=== PATIENT | male | born 1965 | race Caucasian/White ===

== ENCOUNTER 2020-02-07 18:35 | Emergency (ER) | payer BC, OTHER ==
[2020-02-07] MEDS ORDERED: NAPROXEN 250 MG TAB ONE (21:00)
[2020-02-07] MEDS ORDERED: LIDOCAINE 4% CREAM 5GM (LMX4) ONE (21:00)
[2020-02-07] MEDS ORDERED: NAPROXEN 250 MG TAB As Ordered ONE (21:09)
[2020-02-07] MEDS ORDERED: LIDOCAINE 4% CREAM 5GM (LMX4) As Ordered ONE (21:09)
--- NOTE | 2020-03-31 11:52 | REP ---
RIGHT ELBOW SERIES: FOUR VIEWS. DATE: 02/07/2020 HISTORY: Lifting injury. NOTE: This report was delayed due to a malware attack on this facility. FINDINGS: Four views of the right elbow demonstrate normal alignment of the glenohumeral and acromioclavicular joint. There is no evidence of joint effusion. No erosive changes seen. No fracture or subluxation is seen. IMPRESSION: No acute abnormality. MTDD
--- NOTE | 2020-03-31 11:53 | REP ---
EXAM: RIGHT SHOULDER: THREE VIEWS. HISTORY: Upper arm and shoulder pain. Lifting and/or carrying injury. NOTE: This report was delayed due to a malware attack on this facility. FINDINGS: Three views of the right shoulder demonstrate normal alignment of the glenohumeral and acromioclavicular joints. Articular soft tissues are unremarkable. No fracture or subluxation is seen. IMPRESSION: No fracture or subluxation noted. [facility]
== END 2020-02-07 21:15 | disposition home or self-care (01) ==
LOC: M ED 18:35
DX: S46.211A Strain of muscle, fascia and tendon of other parts of biceps, right arm, initial encounter (principal); X50.0XXA Overexertion from strenuous movement or load, initial encounter; W18.49XA Other slipping, tripping and stumbling without falling, initial encounter; Y92.9 Unspecified place or not applicable; Y93.9 Activity, unspecified; Y99.9 Unspecified external cause status

== ENCOUNTER 2020-02-15 14:30 | Day surgery (SDC) | payer OTHER ==
[2020-02-15] MEDS ORDERED: ceFAZolin 2 GM/D5W 50 ML IV BAG (J0690 PER 500MG) As Ordered ONE (14:40)
[2020-02-15] MEDS ORDERED: ROCURONIUM BROMIDE 50 MG/5 ML VIAL As Ordered ONE (15:21)
[2020-02-15] MEDS ORDERED: LIDOCAINE 2% 100MG/5ML SDV (FOR ANES.) As Ordered ONE (15:21)
[2020-02-15] MEDS ORDERED: propofoL 200 MG/20 ML VIAL As Ordered ONE ×2 (15:21→18:06)
[2020-02-15] MEDS ORDERED: fentaNYL 250 MCG/5 ML INJECTION (J3010) As Ordered ONE (16:02)
[2020-02-15] MEDS ORDERED: MIDAZOLAM INJ 2MG/2ML VIAL (J2250 PER 1MG) As Ordered ONE (16:02)
[2020-02-15] MEDS ORDERED: BUPIVACAINE HCL 0.5% 10ML VIAL As Ordered ONE (16:40)
[2020-02-15] MEDS ORDERED: dexameTHASONE 4 MG/ML 1ML VIAL (J1100 PER 1MG) As Ordered ONE (17:10)
[2020-02-15] MEDS ORDERED: ACETAMINOPHEN 1000MG 100ML IV BTL (OFIRMEV) (J0131 PER 10MG) As Ordered ONE (17:10)
[2020-02-15] MEDS ORDERED: ONDANSETRON 4MG/2ML VIAL As Ordered ONE ×2 (17:10→18:43)
[2020-02-15] MEDS ORDERED: KETOROLAC 60MG 2ML VIAL As Ordered ONE (17:10)
[2020-02-15] MEDS ORDERED: SUGAMMADEX SODIUM 500 MG/5 ML VIAL (BRIDION) As Ordered ONE (18:06)
[2020-02-15] MEDS ORDERED: METOCLOPRAMIDE INJ 10MG/2ML VIAL (J2765 PER 1) ONE (18:34)
[2020-02-15] MEDS ORDERED: oxyCODONE 5MG TAB ONE (18:34)
[2020-02-15] MEDS ORDERED: ONDANSETRON 4MG/2ML VIAL ONE (18:34)
[2020-02-15] MEDS ORDERED: oxyCODONE 5MG TAB As Ordered ONE (18:34)
[2020-02-15] MEDS ORDERED: METOCLOPRAMIDE INJ 10MG/2ML VIAL (J2765 PER 1) As Ordered ONE (19:38)
--- NOTE | 2020-03-24 13:20 | ECGEPIP ---
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
--- NOTE | 2020-03-31 11:55 | REP ---
RIGHT ELBOW SERIES: 5-VIEWS HISTORY: Intraoperative imaging. 13 seconds of fluoroscopy time is reported. FINDINGS: A sequence of five last image hold fluoroscopically obtained spot radiographs of the right elbow document operative probe at the proximal radial tuberosity and a metallic fixation device at this level on final films. VAIBHAV
--- NOTE | 2020-04-13 13:11 | RO ---
DATE OF OPERATION: 02/15/2020 PREOPERATIVE DIAGNOSIS: Right distal biceps tendon tear. POSTOPERATIVE DIAGNOSIS: Right distal biceps tendon tear. PROCEDURE: Right open distal biceps tendon repair. SURGEON: Marcel Lackey M.D. SUPERVISOR GRINDING: Grant Lechuga PA-C ANESTHESIA: General. IV FLUIDS: Lactated ringers. ESTIMATED BLOOD LOSS: Less than 5 mL. IMPLANTS: Arthrex distal biceps button x1. CLOSURE: Monocryl and Steri-Strips. DESCRIPTION OF PROCEDURE: Patient identified in the preoperative holding area. The right arm was marked. He was brought to the operating room and placed supine on a well-padded operating room (OR) table with an arm board. General anesthesia was induced. The right arm was then prepped and draped in a normal sterile fashion with ChloraPrep. Prior to incision, time-out was performed per hospital protocol. He received appropriate intravenous (IV) antibiotics within in one hour of incision. A well-padded sterile tourniquet was then applied to the upper arm, the arm was exsanguinated with an Esmarch bandage, and the tourniquet inflated to 250 mmHg. Grant Lechuga PA-C was present for the entire procedure and participated in all essential portions of the procedure. This included patient position and draping, holding the forearm in supination during the surgical approach, holding retractors, assisting with whip stitching the tendon, protecting neurovascular structures during drilling and docking of the tendon, and assisted with the closure. A transverse incision was made with the 15-blade three fingerbreadths distal to the elbow flexion crease. This was just through the dermis to avoid damage to the lateral antebrachial cutaneous nerve. Dissection with Metzenbaum scissors down to the superficial fascia, which was carefully opened with scissors. The lateral antebrachial cutaneous nerve was identified running with two small veins and this was protected throughout the case. Blunt finger dissection down the internervous plane to the radial tuberosity with the forearm in supination. A freer elevator was used to release the tendon sheath and bursa and a small seroma was encountered and drained. The tendon had torn completely off the tuberosity. Blunt dissection proximally was then carried out and the biceps tendon was noted to be balled up in the antecubital fossa. This was grasped carefully with an Allis clamp. There was extensive degeneration of the distal aspect of the tendon. Sharp scissors were then used to contour and bullet to the tip of the tendon. The Arthrex distal biceps kit was open. A running locking whip stitch placed with a fiber loop for a length of 3 cm. This was sized to a 7 mm tendon. With the forearm in supination, [employer] [place] retractors were gently used to expose and protect the radial tuberosity and the Imperial tip drill bit was advanced unicortically. Appropriately position confirmed on the mini C-arm. This was then drilled bicortically and then a 7 mm acorn reamer was used to drill a unicortical socket. I then extensively irrigated the surgical field to help avoid heterotopic bone formation. The tunnel was placed as far ulnar as possible on the radial tuberosity. The sutures through the tendon were then loaded through the biceps button per routine, which was then placed on the parts product analyst. The button was passed through the drill hole, sutures were toggled, and the button was flipped. Elbow was gently flexed. The tendon was nicely docked into the socket and then preliminary AP and lateral on the C-arm showed that the button was well-positioned. The elbow was then flexed to 40 degrees, sutures were toggled, and this fully docked the tendon and then, the sutures were tied by hand. A curve-free needle was then used to pass on limb of suture back through the tendon and this was locked and then sutures tied again. The final C-arm AP and lateral mini C-arm images were taken showing a well-positioned button. Excess suture was cut and discarded. The incision was irrigated and then the fascia was carefully closed with 3-0 Vicryl taking care to protect the lateral antebrachial cutaneous nerve. Then subcuticular closure with 3-0 Vicryl followed by a running Monocryl with Steri- Strips on the skin. Tourniquet was let down with excellent reperfusion of 53 minutes. He had a 2+ radial pulse. A sterile dressing was applied and then, he was placed into a well-padded long arm posterior splint with the elbow at 90 degrees. He was extubated and transferred to the post anesthesia care unit (PACU) in stable condition. VAIBHAV
== END 2020-02-15 20:40 | disposition home or self-care (01) ==
LOC: M SDC 14:30
PROVIDERS: ATTEND Orthopaedic Surgery
DX: S46.211A Strain of muscle, fascia and tendon of other parts of biceps, right arm, initial encounter (principal); X58.XXXA Exposure to other specified factors, initial encounter; Y92.89 Other specified places as the place of occurrence of the external cause; Y93.9 Activity, unspecified; Y99.9 Unspecified external cause status
CPT/HCPCS: 24342; 76000; 93005; C1713; J0131; J1100; J1885; J2250; J2405; J2765; J3010

== ENCOUNTER 2021-12-12 14:51 | Emergency (ER) | payer OTHER, SELFPAY ==
[~2021-12-12] VITALS: Ht 182.9 cm; Wt 104.5 kg
[2021-12-12] MEDS ORDERED: ISOVUE-370 76% 100ML VIAL As Ordered ONE (19:11)
[2021-12-12 19:33] LABS: BASO % 0.3 % (0.0-1.0); EOS # 0.2 10^3/uL (0.0-0.5); EOS % 2.3 % (0.0-3.0); HEMATOCRIT 44.9 % (42.0-52.0); HEMOGLOBIN 15.5 g/dl (13.5-17.5); LYMPH # 1.4 10^3/uL (1.5-5.0); LYMPH % 20.6 % (24.0-44.0); MEAN CORPUSCULAR HEMOGLOBIN 29.5 pg (27.0-33.0); MEAN CORPUSCULAR HGB CONC 34.5 g/dl (32.0-36.5); MEAN CORPUSCULAR VOLUME 85.5 fl (80.0-96.0); MONO # 0.7 10^3/uL (0.0-0.8); NEUTROPHILS # 4.6 10^3/uL (1.5-8.5); NEUTROPHILS % 66.5 % (36.0-66.0); PLATELET COUNT, AUTOMATED 198 10^3/uL (150-450); RED BLOOD COUNT 5.25 10^6/uL (4.30-6.10); WHITE BLOOD COUNT 6.9 10^3/uL (4.0-10.0)
[2021-12-12 19:43] LABS: ALBUMIN 3.5 GM/DL (3.2-5.2); BILIRUBIN,DIRECT 0.1 MG/DL (0.0-0.2); BILIRUBIN,TOTAL 1.2 MG/DL (0.2-1.0)
[2021-12-12] MEDS ORDERED: AMOX875T2 PO (20:04)
[2021-12-12] MEDS ORDERED: AUGMENTIN 875 MG TAB PO ONE (20:05)
[2021-12-12 20:15] VITALS: BP 125/89
== END 2021-12-12 20:23 | disposition home or self-care (01) ==
LOC: M ED 14:51
DX: K57.32 Diverticulitis of large intestine without perforation or abscess without bleeding (principal); M48.061 Spinal stenosis, lumbar region without neurogenic claudication; N28.1 Cyst of kidney, acquired
CPT/HCPCS: 36415; 74177; 80047; 80076; 83690; 85025; 99284; Q9967

== ENCOUNTER → 2022-06-19 | Outpatient (CLI) | payer MEDICAID ==
[~2022-06-19] MED LIST: AMOX875T2 PO
== END ==
LOC: M WUC 09:36
PROVIDERS: ATTEND Physician Assistant
DX: K76.0 Fatty (change of) liver, not elsewhere classified (principal)